=== PATIENT | female | born 1955 | race African-American/Black ===

== ENCOUNTER 2019-03-21 07:05 | Emergency (ER) | payer OTHER, MEDICAID ==
[~2019-03-21] VITALS: Ht 167.6 cm; Wt 95.3 kg
[~2019-03-21 07:05] MED LIST: AMLO10TA4 PO; ASPI-785 PO; ATEN50TA PO; CHLO25TA2 PO; CLOP75TA4 PO; FOLI-43 PO; HYDR200T35 PO; MICRO10 PO; NAPR-681 PO; SIMV-43 PO; TRAZ-251 PO
[2019-03-21] MEDS ORDERED: MECLIZINE 25MG TABLET PO ONE (07:45)
[2019-03-21 07:56] LABS: BASOPHILS % 0.7 % (0.0-2.0); EOSINOPHILS % 1.2 % (0.0-5.0); HEMATOCRIT. 35.3 % (36.0-48.0); HEMOGLOBIN. 11.8 g/dL (12.0-16.0); LYMPHOCYTES % 29.8 % (20.0-50.0); MEAN CORPUSCULAR HEMOGLOBIN 32.6 pg (28.0-32.0); MEAN CORPUSCULAR VOLUME 97.6 fL (81.0-99.0); MEAN PLATELET VOLUME 9.2 fl (7.4-10.4); MONOCYTES % 11.8 % (2.0-8.0); NEUTROPHILS % 56.5 % (40.0-76.0); PLATELET 160 x1000/uL (130-400); RED BLOOD CELL COUNT 3.61 mill/uL (4.2-5.4)
[2019-03-21 08:02] LABS: CHLORIDE 107 mEq/L (98-107)
[2019-03-21 08:03] LABS: PROTHROMBIN TIME 10.1 sec (9.6-11.0)
[2019-03-21 10:21] VITALS: BP 156/99
== END 2019-03-21 10:59 | disposition home or self-care (01) ==
LOC: ER 07:05
DX: R42 Dizziness and giddiness (principal); I10 Essential (primary) hypertension; M06.9 Rheumatoid arthritis, unspecified; Z86.73 Personal history of transient ischemic attack (TIA), and cerebral infarction without residual deficits
CPT/HCPCS: 36415; 70450; 71045; 80053; 84484; 85025; 85610; 93005; 99285; J8597

== ENCOUNTER 2019-07-21 04:58 | Emergency (ER) | payer OTHER, MEDICAID ==
[~2019-07-21] VITALS: Ht 167.6 cm; Wt 68.0 kg
[2019-07-21] MEDS ORDERED: IBUPROFEN 600MG TABLET PO STA (05:01)
[2019-07-21 09:50] VITALS: BP 150/87
== END 2019-07-21 09:56 | disposition home or self-care (01) ==
LOC: ER 04:58
DX: R51 Headache (principal); I10 Essential (primary) hypertension; Z79.899 Other long term (current) drug therapy; Z86.73 Personal history of transient ischemic attack (TIA), and cerebral infarction without residual deficits; Z87.39 Personal history of other diseases of the musculoskeletal system and connective tissue
CPT/HCPCS: 99285

== ENCOUNTER 2024-02-12 14:32 | Emergency (ER) | payer OTHER, MEDICAID ==
[~2024-02-12] VITALS: Ht 167.6 cm; Wt 90.0 kg
[~2024-02-12 14:32] MED LIST changes: +CLOP-31 PO; -CLOP75TA4 PO
[2024-02-12 14:38] VITALS: BP 165/95; PULSE 95; RESP 16; TEMP 97.5; O2SAT 100
[2024-02-12] MEDS: ACETAMINOPHEN 325MG TABLET PO STA (18:50)
[2024-02-12] MEDS: LIDOCAINE HCL/PF 1% 10 MG/ML 5ML VIAL INFIL ONE (19:45)
[2024-02-12] MEDS ORDERED: NAPR-1486 PO (19:59)
== END 2024-02-12 20:29 | disposition home or self-care (01) ==
LOC: ER 14:56
DX: S80.11XA Contusion of right lower leg, initial encounter (principal); M79.651 Pain in right thigh; M79.604 Pain in right leg; I10 Essential (primary) hypertension; M19.90 Unspecified osteoarthritis, unspecified site; Z86.73 Personal history of transient ischemic attack (TIA), and cerebral infarction without residual deficits; Z96.659 Presence of unspecified artificial knee joint; Z88.5 Allergy status to narcotic agent; W19.XXXA Unspecified fall, initial encounter; Y93.89 Activity, other specified; Y92.520 Airport as the place of occurrence of the external cause; Y99.8 Other external cause status
CPT/HCPCS: 99284; 73502; 73552; 73590; J3490

== ENCOUNTER 2024-02-22 05:23 | Emergency (ER) | payer MEDICAID, OTHER ==
[~2024-02-22] VITALS: Ht 162.6 cm; Wt 86.0 kg
[~2024-02-22 05:23] MED LIST changes: +NAPR-1486 PO
[2024-02-22 05:32] VITALS: O2SAT 99
[2024-02-22] MEDS: SODIUM CHLORIDE 0.9% 500 ML IV ONE (06:27)
[2024-02-22 07:00] LABS: BASOPHILS % 0.5 % (0.0-2.0); EOSINOPHILS % 1.5 % (0.0-5.0); HEMOGLOBIN. 12.3 g/dL (12.0-16.0); LYMPHOCYTES % 12.9 % (20.0-50.0); MEAN CORPUSCULAR HEMOGLOBIN 32.1 pg (28.0-32.0); MEAN CORPUSCULAR HGB CONC 33.4 g/dL (31.0-37.0); MEAN CORPUSCULAR VOLUME 96.3 fL (81.0-99.0); MEAN PLATELET VOLUME 9.6 fl (7.4-10.4); MONOCYTES % 10.1 % (2.0-8.0); PLATELET 160 x1000/uL (130-400); RED BLOOD CELL COUNT 3.84 mill/uL (4.2-5.4); WHITE BLOOD COUNT 7.2 x1000/uL (4.5-11.0)
[2024-02-22 07:04] LABS: CHLORIDE 110 mEq/L (98-107); POTASSIUM 3.3 mEq/L (3.5-5.1); SODIUM 144 mEq/L (136-145)
[2024-02-22 07:05] LABS: CALCIUM 9.1 mg/dL (8.7-10.4); CARBON DIOXIDE 25 mEq/L (21-32)
[2024-02-22 07:10] LABS: CREATININE 0.8 mg/dL (0.6-1.0); GLUCOSE 130 mg/dL (70-105); UREA NITROGEN BLOOD 7 mg/dL (9-23)
[2024-02-22] MEDS: HYDRALAZINE 20MG/ML VIAL IV ONE (07:12)
[2024-02-22 07:13] LABS: TROPONIN I HIGH SENSITIVITY 8 ng/L (3.0-34)
[2024-02-22 08:38] VITALS: TEMP 37.00296
[2024-02-22] MEDS: SODIUM CHLORIDE 0.9% 1,000 ML IV ONE (10:00)
[2024-02-22] MEDS: OXYCODONE HCL/ACETAMINOPHEN 5/325MG TABLET PO ONE (12:27)
[2024-02-22] MEDS: METOPROLOL TARTRATE 25MG TABLET PO ONE (12:28)
[2024-02-22 16:09] VITALS: BP 163/94; PULSE 93; RESP 16; O2SAT 99
== END 2024-02-22 16:12 | disposition home or self-care (01) ==
LOC: ER 05:23
DX: I10 Essential (primary) hypertension (principal); R42 Dizziness and giddiness; E86.0 Dehydration; E11.9 Type 2 diabetes mellitus without complications; Z79.02 Long term (current) use of antithrombotics/antiplatelets; Z79.82 Long term (current) use of aspirin; Z79.899 Other long term (current) drug therapy; Z88.5 Allergy status to narcotic agent; Z91.148 Patient's other noncompliance with medication regimen for other reason
CPT/HCPCS: 99285; 96374; 71045; 96361; 80048; 83880; 85025; 84484; 36415; 93005; J0360; J7030